=== PATIENT | male | born 1970 | race Caucasian/White ===

== ENCOUNTER 2019-12-13 12:22 | Emergency (ER) | payer BC, SELFPAY ==
[2019-12-13] VITALS (8 sets, daily range): BP systolic 115–139; BP diastolic 73–87; PULSE 58–92; RESP 11–18; O2SAT 96–100
--- NOTE | ~2019-12-13 | XR_ITS ---
XR chest 2V DATE: 12/13/2019 13:14 INDICATION: Overdose, possible aspiration TECHNIQUE: AP and lateral views COMPARISON: 09/14/2007 two-view chest FINDINGS: Normal heart size. No hilar or mediastinal enlargement. No pulmonary infiltrate or consolid ation, pleural effusion or pulmonary vascular congestion or pneumothorax. IMPRESSION: No active cardiopulmonary disease Reviewed, dictated and finalized at location A.
--- NOTE | 2019-12-13 12:35 | ED.GENADULT ---
HPI - General Adult General Chief complaint: Overdose Stated complaint: OD Source: patient and EMS Mode of arrival: EMS Limitations: no limitations History of Present Illness HPI narrative: Patient is a 49-year-old male with a history of fentanyl use who presents for evaluation of overdose. Patient reportedly overdosed, was found unresponsive by a roommate, and EMS was called. At the time of assessment, patient was apneic, did have a palpable pulse, thus the patient was given 2 mg of intramuscular Narcan, IV was established, given 2 g of intravenous Narcan and the patient awakened. Patient reported to fentanyl use. He denied alcohol use, other drug use. He was transported to our facility in stable condition, awake and alert. At the time of assessment, patient has no pain. He is alert and oriented to person, place and to time. He denies any headache pain, chest pain, shortness of breath. He denies intent to harm himself, patient is not suicidal. Related Data Allergies Allergy/AdvReac Type Severity Reaction Status Date / Time Penicillins Allergy Unknown Verified 02/19/17 16:50 Review of Systems Review of Systems: Narrative: CONSTITUTIONAL: Denies fever CARDIOVASCULAR: Denies chest pain RESPIRATORY: Denies cough or dyspnea. GASTROINTESTINAL: Denies abdominal pain SKIN: Denies rash MUSCULOSKELETAL: Denies back pain NEUROLOGIC: Denies headache Psych: Denies suicide attempt [facility] Past Medical History Medical History (Updated 12/13/19 @ 16:04 by Amisha Irvin MD) Hypertension Surgical History Surgical History (Updated 12/13/19 @ 12:37 by Amisha Irvin MD) History of hip replacement Social History Social History (Updated 12/13/19 @ 12:37 by Amisha Irvin MD) Smoking status: Former smoker Alcohol intake: never Substance use: current Substance use type: opiates Gender identity (if verbalized by the patient): Male Exam Narrative: Exam Narrative: GENERAL: Awake, alert, conversant HEAD: Normocephalic, atraumatic. EYES: PERRLA and EOMI. ENT: Nares clear, no rhinorrhea or epistaxis. Mucous membranes moist. NECK: Supple. CHEST: No respiratory distress, breathing even and non labored HEART: Regular rate, sinus rhythm ABDOMEN:Non distended, non tender EXTREMITIES: Normal range of motion. No edema. SKIN: Warm, dry, no rash. NEURO:No focal deficits. Alert and oriented x3 PSYCH: Denies HI or SI Course Vital Signs Vital signs: Vital Signs Pulse Rate 92 12/13/19 12:20 Respiratory Rate 12 12/13/19 12:20 Blood Pressure 139/87 12/13/19 12:20 Pulse Oximetry 100 12/13/19 12:20 Pulse Rate 58 L 12/13/19 15:29 Respiratory Rate 18 12/13/19 15:29 Blood Pressure 116/78 12/13/19 15:29 Pulse Oximetry 98 12/13/19 15:29 Medical Decision Making MDM Narrative Medical decision making narrative: Patient presenting for evaluation following a fentanyl overdose in which he received IV and intramuscular Narcan with good improvement in his apnea. Patient denies any reports of pain. He had no repeat episodes of apnea while in the emergency department and while on end-tidal. Patient without any pain type symptoms. Patient is not homicidal suicidal. This was unintentional. No recurrent apnea. Patient was counseled on the the effects of opiate overdose, that he today, because EMS efforts were able to revive him with Narcan. Patient is understanding. He was then discharged home after a 4-hour period of observation. Vital Signs Vital Signs: Vital Signs Pulse Rate 92 12/13/19 12:20 Respiratory Rate 12 12/13/19 12:20 Blood Pressure 139/87 12/13/19 12:20 Pulse Oximetry 100 12/13/19 12:20 Pulse Rate 58 L 12/13/19 15:29 Respiratory Rate 18 12/13/19 15:29 Blood Pressure 116/78 12/13/19 15:29 Pulse Oximetry 98 12/13/19 15:29 Imaging Data Radiologist's impression: ITS Impressions Chest X-Ray 12/13/19 13:16 IMPRESSION: No active cardiopulmo
== END 2019-12-13 16:27 | disposition home or self-care (01) ==
PROVIDERS: Emergency Provider Emergency Medicine; PCP Family Medicine
DX: T40.4X1A Poisoning by other synthetic narcotics, accidental (unintentional), initial encounter (principal); I10 Essential (primary) hypertension; Z96.649 Presence of unspecified artificial hip joint; Z87.891 Personal history of nicotine dependence
CPT/HCPCS: 71046; 99283

== ENCOUNTER 2020-04-19 08:08 | Emergency (ER) | payer BC, SELFPAY ==
[2020-04-19] VITALS (47 sets, daily range): BP systolic 117–150; BP diastolic 62–113; PULSE 67–107; RESP 12–21; TEMP 36.6; O2SAT 90–100
[2020-04-19] MEDS: SODIUM CHLORIDE 0.9% IV 1,000 ML 999 ML IV CONT ×2 (08:24→09:11)
--- NOTE | 2020-04-19 08:25 | ED.OVERDOSE ---
HPI - Overdose General Chief Complaint: Overdose Stated Complaint: OD History of Present Illness HPI Narrative: Patient is a 49-year-old male who presents the ER with an unintentional opiate overdose. Patient reports he took 1 mg of fentanyl 1 hour prior to arrival. His mom found him unresponsive in his room. It took 6 mg of Narcan for EMS to reverse overdose. Patient had a similar situation occurred 1 week ago at a local establishment. At that time he had signed a refusal. Patient reports he was only trying to get high and was not trying to end his own life. Related Data Home Medications Medication Instructions Recorded Confirmed No Home Medications 04/19/20 04/19/20 Allergies Allergy/AdvReac Type Severity Reaction Status Date / Time Penicillins Allergy Unknown Verified 02/19/17 16:50 Review of Systems Review of Systems: All systems reviewed & are unremarkable except as noted in HPI and below Constitutional: Constitutional: Denies chills, Denies fever(s) and Denies weakness ENT: Denies nasal congestion and Denies sore throat Respiratory: Respiratory: Denies cough, Denies dyspnea and Denies wheezing Gastrointestinal: Gastrointestinal: Denies abdominal pain, Denies nausea and Denies vomiting Psychiatric: Psychiatric: Denies anxiety, Denies depression, Denies homicidal ideation and Denies suicidal ideation [facility] Past Medical History Medical History (Updated 04/19/20 @ 15:06 by Kralo Durand MD) Hypertension Surgical History Surgical History (Updated 12/13/19 @ 12:37 by Amisha Irvin MD) History of hip replacement Social History Social History (Updated 12/13/19 @ 12:37 by Amisha Irvin MD) Smoking status: Former smoker Alcohol intake: never Substance use: current Substance use type: opiates Gender identity (if verbalized by the patient): Male Exam Narrative: Exam Narrative: GENERAL: Well-appearing, well-nourished, and in no acute distress. HEAD: Normocephalic, atraumatic. EYES: PERRL and EOMI. ENT: Mucous membranes moist. CHEST: Clear to auscultation. No respiratory distress. HEART: Regular rate and rhythm. Normal peripheral pulses. ABDOMEN: Soft, nontender, nondistended. EXTREMITIES: Normal range of motion. No edema. NEURO: Alert and oriented x3. PSYCH: Normal mood and affect. Course Course Emergency Course: Patient required 1 dose of Narcan while in the ER. He has done well since that dose and has had no additional hypoxia or respiratory suppression. He is awake and alert and oriented x3. He is ready to go and has contacted a ride. Vital Signs Vital signs: Vital Signs Temperature 97.8 F 04/19/20 08:12 Pulse Rate 103 H 04/19/20 08:12 Respiratory Rate 12 04/19/20 08:12 Blood Pressure 150/85 H 04/19/20 08:12 Pulse Oximetry 98 04/19/20 08:12 Temperature 97.8 F 04/19/20 08:12 Pulse Rate 67 04/19/20 14:31 Respiratory Rate 12 04/19/20 14:31 Blood Pressure 119/82 04/19/20 14:31 Pulse Oximetry 93 04/19/20 14:31 MDM - Overdose Lab Data Result diagrams: 04/19/20 08:24 04/19/20 08:24 Labs: Lab Results 04/19/20 04/19/20 Range/Units 08:24 08:24 WBC 10.1 H (4.5-10.0) K/mm3 RBC 4.29 L (4.6-6.20) M/mm3 Hgb 13.1 L (14.0-18.0) g/dL Hct 40.5 L (42.0-52.0) % MCV 94.4 (80-100) fl MCH 30.5 (26-34) pg MCHC 32.3 (32-36) g/dl RDW 13.5 (11.5-14.5) % Plt Count 286 (150-375) k/mm3 MPV 8.3 (7.4-10.4) fl Immature Gran % (Auto) 0.5 (0-0.5) % Neut % (Auto) 87.3 H (45.5-73.1) % Lymph % (Auto) 9.0 L (18.3-44.2) % [place] % (Auto) 1.7 L (2.6-8.5) % Eos % (Auto) 1.2 (0-4.4) % Baso % (Auto) 0.3 (0.2-1.2) % Lymph # (Auto) 0.91 (0.9-3.2) K/mm3 [place] # (Auto) 0.2 (0.1-0.6) K/mm3 Eos # (Auto) 0.1 (0-0.3) K/mm3 Baso # (Auto) 0.0 (0.0-0.1) K/mm3 Abs Immat Gran (auto) 0.05 H (0.00-0.031) K/mm3 Absolute Neuts (auto) 8.8 H (1.3-6.7)
--- NOTE | 2020-04-19 08:27 | ECG_ITS ---
Measurements Intervals [place] Rate: 101 P: 55 TN: 173 QRS: 49 QRSD: 91 T: 42 QT: 336 QTc: 436 Interpretive Statements SINUS TACHYCARDIA BASELINE ARTIFACT- I, III, AVL, V2-V3 BORDERLINE ECG Electronically Signed On 04-19-2020 9:09:30 CDT by Teodoro Baron D.O.
[2020-04-19 08:34] LABS: Basophils Percent Auto 0.3 % (0.2-1.2); Eosinophils Absolute Auto 0.1 K/mm3 (0-0.3); Eosinophils Percent Auto 1.2 % (0-4.4); Hematocrit 40.5 % (42.0-52.0); Hemoglobin 13.1 g/dL (14.0-18.0); Immature Granulocyte Absolute 0.05 K/mm3 (0.00-0.031); Immature Granulocyte Percent A 0.5 % (0-0.5); Lymphocytes Absolute Auto 0.91 K/mm3 (0.9-3.2); Mean Corpuscular HGB Conc 32.3 g/dl (32-36); Mean Corpuscular Hemoglobin 30.5 pg (26-34); Mean Corpuscular Volume 94.4 fl (80-100); Mean Platelet Volume 8.3 fl (7.4-10.4); Monocytes Absolute Auto 0.2 K/mm3 (0.1-0.6); Monocytes Percent Auto 1.7 % (2.6-8.5); Neutrophils Absolute Auto 8.8 K/mm3 (1.3-6.7); Neutrophils Percent Auto 87.3 % (45.5-73.1); Platelet Count Result 286 k/mm3 (150-375); Red Blood Count 4.29 M/mm3 (4.6-6.20); Red Cell Distribution Width 13.5 % (11.5-14.5); White Blood Count 10.1 K/mm3 (4.5-10.0)
[2020-04-19 08:46] LABS: Alanine Aminotransferase 186 U/L (4-50); Albumin Level 4.6 g/dL (3.5-5.1); Alkaline Phosphatase 99 U/L (38-126); Anion Gap 17 mmol/L (8-16); Aspartate Amino Transferase 250 U/L (17-59); Bilirubin,Total 0.3 mg/dL (0.2-1.3); Blood Urea Nitrogen 27 mg/dL (9-20); Calcium 9.4 mg/dL (8.4-10.2); Carbon Dioxide 21 mmol/L (22-30); Chloride 101 mmol/L (98-107); Estimated CRCL calculation 55 ml/min; Estimated Glomerular Filt Rate 43; Glucose 166 mg/dL (75-110); Potassium 4.6 mmol/L (3.4-5.0); Sodium 139 mmol/L (137-145)
[2020-04-19] MEDS: ONDANSETRON INJ 4 MG/2 ML VIAL IV PUSH (10:49)
[2020-04-19] MEDS: NALOXONE HCL INJ 2 MG/2 ML AMP 1 MG IV PUSH (10:56)
--- NOTE | 2020-04-19 10:56 | PC.NURSE ---
Pt. becoming increasingly more lethargic, pupils becoming pin point. EDP notified. Per EDP via verbal order readback give Pt. 1mg of narcan IVP. Pt. became more alert. Pt. AOx4
== END 2020-04-19 15:16 | disposition home or self-care (01) ==
PROVIDERS: Emergency Provider Emergency Medicine; PCP Family Medicine
DX: T40.4X1A Poisoning by other synthetic narcotics, accidental (unintentional), initial encounter (principal); Z96.649 Presence of unspecified artificial hip joint; Z87.891 Personal history of nicotine dependence; R00.0 Tachycardia, unspecified
CPT/HCPCS: 36415; 80053; 85025; 93005; 96361; 96374; 96375; 99284; J2310; J2405; J7030

== ENCOUNTER 2021-02-03 07:44 | Emergency (ER) | payer BC, SELFPAY ==
[2021-02-03] VITALS (14 sets, daily range): BP systolic 118–167; BP diastolic 58–96; PULSE 48–100; RESP 11–24; TEMP 36.5; O2SAT 94–100
--- NOTE | 2021-02-03 08:18 | ED.GENADULT ---
HPI - General Adult General Chief complaint: Overdose Stated complaint: od Time Seen by Provider: 02/03/21 08:03 Source: patient History of Present Illness HPI narrative: Patient is a 50 y/o male brought in by EMS for overdose. He was apparently found unresponsive earlier today by his mother, who called EMS. He was given Narcan and he became responsive. Currently, he states that he feels well with no complaint. He admits that he has been using Fentanyl. He denies any SI. Related Data Home Medications Medication Instructions Recorded Confirmed lisinopril 02/03/21 Allergies Allergy/AdvReac Type Severity Reaction Status Date / Time Penicillins Allergy Unknown Verified 02/19/17 16:50 Review of Systems Review of Systems: All systems reviewed & are unremarkable except as noted in HPI and below Constitutional: Constitutional: Denies chills, Denies fever(s), Denies headache(s) and Denies weakness Eyes: Eyes: Denies blurry vision ENT: Denies headache(s) and Denies neck pain Cardiovascular: Cardiovascular: Denies chest pain and Denies dyspnea Respiratory: Respiratory: Denies cough and Denies dyspnea Gastrointestinal: Gastrointestinal: Denies abdominal pain, Denies diarrhea, Denies nausea and Denies vomiting Genitourinary: Genitourinary: Denies hematuria and Denies dysuria Musculoskeletal: Musculoskeletal: Denies back pain and Denies neck pain Neurologic: Denies headache(s) and Denies weakness PMFSH Past Medical History Medical History Hypertension Surgical History Surgical History History of hip replacement Social History Social History Smoking status: Former smoker Alcohol intake: never Substance use: current Substance use type: opiates and inhalants Gender identity (if verbalized by the patient): Male Exam Const: General: no acute distress and well developed Orientation/consciousness: oriented to person, oriented to place, oriented to time and patient oriented x3 HENMT: Head: normocephalic Ears: external ears normal General nose exam: Normal external nose present Eyes: General: appearance normal, both eyes and all related structures Conjunctivae: conjunctivae normal Neck: Neck: normal visual inspection and full ROM Chest: Chest palpation & inspection: normal inspection of the chest and no tenderness Resp: Effort & Inspection: normal respiratory effort Auscultation: clear to auscultation bilaterally Cardio: Rate: regular rate Rhythm: regular rhythm GI: GI Palp: No abdominal tenderness and Yes Soft to palpation Skin: General skin exam: normal color and turgor normal Neuro: General: oriented to person, oriented to place, oriented to time and patient oriented x3 Cognition (Neuro): normal cognition Extrem: General: normal to inspection, full ROM and no pedal edema Psych: Appearance: grossly normal Mental Status: mental status grossly normal Affect: normal affect Course Vital Signs Vital signs: Vital Signs Temperature 36.5 C 02/03/21 07:45 Pulse Rate 100 02/03/21 07:45 Respiratory Rate 20 02/03/21 07:45 Blood Pressure 167/96 H 02/03/21 07:45 Pulse Oximetry 100 02/03/21 07:45 Temperature 36.5 C 02/03/21 07:45 Pulse Rate 51 L 02/03/21 14:20 Respiratory Rate 18 02/03/21 14:20 Blood Pressure 129/81 02/03/21 14:20 Pulse Oximetry 99 02/03/21 14:20 Medical Decision Making MDM Narrative Medical decision making narrative: Leukocytosis is noted. There is no obvious source of infection. This is likely due to stress. Vital Signs Vital Signs: Vital Signs Temperature 36.5 C 02/03/21 07:45 Pulse Rate 100 02/03/21 07:45 Respiratory Rate 20 02/03/21 07:45 Blood Pressure 167/96 H 02/03/21 07:45 Pulse Oximetry 100 02/03/21 07:45 Temperature 36.5 C 02/03/21 07:45 Pu
[2021-02-03 08:42] LABS: Basophils Absolute Auto 0.1 K/mm3 (0.0-0.1); Basophils Percent Auto 0.2 % (0.2-1.2); Eosinophils Absolute Auto 0.1 K/mm3 (0-0.3); Eosinophils Percent Auto 0.2 % (0-4.4); Hemoglobin 12.2 g/dL (14.0-18.0); Immature Granulocyte Percent A 0.5 % (0-0.5); Lymphocytes Absolute Auto 0.41 K/mm3 (0.9-3.2); Mean Corpuscular Hemoglobin 30.3 pg (26-34); Mean Platelet Volume 8.2 fl (7.4-10.4); Monocytes Absolute Auto 0.7 K/mm3 (0.1-0.6); Monocytes Percent Auto 3.3 % (2.6-8.5); Neutrophils Absolute Auto 19.2 K/mm3 (1.3-6.7); Neutrophils Percent Auto 93.8 % (45.5-73.1); Platelet Count Result 306 k/mm3 (150-375); Red Blood Count 4.02 M/mm3 (4.6-6.20); Red Cell Distribution Width 13.2 % (11.5-14.5); White Blood Count 20.5 K/mm3 (4.5-10.0)
[2021-02-03 08:52] LABS: Chloride 103 mmol/L (98-107)
[2021-02-03 08:59] LABS: Albumin Level 4.1 g/dL (3.5-5.1)
[2021-02-03 09:00] LABS: Alanine Aminotransferase 15 U/L (4-50); Alkaline Phosphatase 93 U/L (38-126); Anion Gap 8 mmol/L (8-16); Aspartate Amino Transferase 33 U/L (17-59); Bilirubin,Total 0.3 mg/dL (0.2-1.3); Blood Urea Nitrogen 21 mg/dL (9-20); Calcium 9.1 mg/dL (8.4-10.2); Carbon Dioxide 28 mmol/L (22-30); Estimated CRCL calculation 85 ml/min; Estimated Glomerular Filt Rate > 60; Glucose 79 mg/dL (75-110); Potassium 3.5 mmol/L (3.4-5.0); Sodium 139 mmol/L (137-145)
--- NOTE | 2021-02-03 09:25 | PC.NURSE ---
pt requested soda, asked RN if pt can have fluids po. Gave pt two sodas, requested urine. Pt to try in urinal before cath
[2021-02-03 14:01] LABS: Add Urine Microscopic? YES; Appearance Urine Clear (Clear); Bilirubin Urine Negative (Negative); Blood Urine Negative (Negative); Color Urine Yellow (Yellow); Glucose Urine UA 3+ mg/dL (Negative); Ketones Urine Negative (Negative); Leukocyte Esterase Ur Negative LEU/UL (Negative); Mucus Urine Rare /lpf; Nitrate Urine Negative (Negative); Protein Urine Negative (Negative); RBC Urine 0-2 /hpf (0-2); Specific Grav Ur 1.021 (1.001-1.035); Urobilinogen Urine Negative mg/dL (<2.0); WBC Urine 0-3 /hpf
[2021-02-03 14:12] LABS: Amphetamine Screen Urine Negative (Negative); Barbiturate Screen Urine Negative (Negative); Benzodiazepines Screen Urine Negative (Negative); Cannabinoid Screen Urine Positive (Negative); Cocaine Screen Urine Negative (Negative); Methadone Screen Urine Negative (Negative); Opiate Screen Urine Negative (Negative); Phencyclidine Screen Urine Negative (Negative)
== END 2021-02-03 14:23 | disposition home or self-care (01) ==
PROVIDERS: Emergency Provider Emergency Medicine; PCP Family Medicine
DX: T40.411A Poisoning by fentanyl or fentanyl analogs, accidental (unintentional), initial encounter (principal); Z96.649 Presence of unspecified artificial hip joint; Z87.891 Personal history of nicotine dependence
CPT/HCPCS: 36415; 80053; 80307; 81001; 85025; 99283

== ENCOUNTER 2023-01-03 10:51 | Emergency (ER) | payer MEDICARE, MEDICAID, SELFPAY ==
[2023-01-03] VITALS (11 sets, daily range): BP systolic 91–135; BP diastolic 57–91; PULSE 68–97; RESP 10–30; TEMP 36.4; O2SAT 96–100
--- NOTE | 2023-01-03 11:24 | PC.NURSE ---
patient refused CXR, provider aware
--- NOTE | 2023-01-03 12:14 | ED.OVERDOSE ---
HPI - Overdose General Chief Complaint: Overdose Stated Complaint: fentanyl OD History of Present Illness HPI Narrative: Patient is a 52-year-old male who presents ER after overdosing on fentanyl. He took a tablet. He is found unresponsive. EMS gave him 2 mg of Narcan intranasally, he then received 4 more milligrams by IV knee. He is awake alert and oriented x3. Has no complaints at this time. He denies being suicidal. Reports he has had increased stress at home due to taking care of his parents. He had been clean from opiate use for prolonged period until relapsing in the last day. There is no evidence of vomiting. Related Data Home Medications Medication Instructions Recorded Confirmed lisinopril 20 mg tablet 02/03/21 Allergies Allergy/AdvReac Type Severity Reaction Status Date / Time Penicillins Allergy Unknown Verified 02/26/21 15:47 Review of Systems Review of Systems: All systems reviewed & are unremarkable except as noted in HPI and below Constitutional: Constitutional: Denies chills and Denies fever(s) Cardiovascular: Cardiovascular: Denies chest pain and Denies rapid heart rate Respiratory: Respiratory: Denies cough and Denies dyspnea Gastrointestinal: Gastrointestinal: Denies abdominal pain, Denies nausea and Denies vomiting Psychiatric: Psychiatric: Denies depression and Denies suicidal ideation [facility] Past Medical History Medical History Hypertension Surgical History Surgical History History of hip replacement Social History Social History (System 02/26/21 @ 15:47 by Gareth Nguyễn) Smoking status: Former smoker Alcohol intake: never Substance use: current Substance use type: opiates and inhalants Gender identity (if verbalized by the patient): Male Exam Narrative: GENERAL: Well-appearing, well-nourished, and in no acute distress. HEAD: Normocephalic, atraumatic. EYES: PERRL and EOMI. ENT: Mucous membranes moist. CHEST: Clear to auscultation. No respiratory distress. HEART: Regular rate and rhythm. Normal peripheral pulses. ABDOMEN: Soft, nontender, nondistended. EXTREMITIES: Normal range of motion. No edema. SKIN: Warm, dry, no rash. NEURO: Alert and oriented x3. PSYCH: Normal mood and affect. Course Course Emergency Course: Patient resting comfortably. No respiratory depression or hypoxia. Patient is required no additional Narcan. [place] appropriate for discharge home. Patient refused his chest x-ray. Vital Signs Vital signs: Vital Signs Temperature 97.5 F L 01/03/23 10:48 Pulse Rate 85 01/03/23 10:48 Respiratory Rate 16 01/03/23 10:48 Blood Pressure 135/88 01/03/23 10:48 Pulse Oximetry 100 01/03/23 10:48 Oxygen Delivery Room Air 01/03/23 10:48 Temperature 97.5 F L 01/03/23 10:48 Pulse Rate 68 01/03/23 13:02 Respiratory Rate 14 01/03/23 13:02 Blood Pressure 107/65 01/03/23 13:02 Pulse Oximetry 100 01/03/23 13:02 Oxygen Delivery Room Air 01/03/23 10:48 Discharge Plan Discharge Clinical Impression: Opiate overdose Patient Disposition: Home, Self-Care Condition: Stable Instructions: Opioid Safety (ED) Additional Instructions: Return the ER if you have fever over 100.4 ?F, you cannot keep down food or water, you lose consciousness, or you have additional concerns. Prescriptions: No Action lisinopril 20 mg tablet Follow-up/Referrals: Josue,Nayeli Deleon MD [Primary Care Provider] - 1 Week
== END 2023-01-03 13:59 | disposition home or self-care (01) ==
PROVIDERS: Emergency Provider Emergency Medicine; PCP Family Medicine
DX: T40.411A Poisoning by fentanyl or fentanyl analogs, accidental (unintentional), initial encounter (principal); I10 Essential (primary) hypertension; Z87.891 Personal history of nicotine dependence
CPT/HCPCS: 99281

== ENCOUNTER 2024-11-04 14:46 | Emergency (ER) | payer OTHER, SELFPAY ==
--- NOTE | ~2024-11-04 | US_ITS ---
EXAMINATION: US venous doppler [facility] DATE: 11/04/2024 17:53 INDICATION: Bilateral lower limb pain and swelling TECHNIQUE: Grayscale ultrasound images without and with compression and Doppler ultrasound images of the bilateral lower extremity veins were obtained. COMPARISON: None. FINDINGS: The visualized portions of right common femoral vein, profunda (deep) femoral vein, femoral vein, pop liteal vein, posterior tibial veins, peroneal veins, gastrocnemius vein and greater saphenous vein ou tflow are patent. The visualized portions of left common femoral vein, profunda femoral vein, femoral vein, popliteal v ein, posterior tibial veins, peroneal veins, gastrocnemius vein and greater saphenous vein outflow ar e patent. IMPRESSION: 1. No deep venous thrombosis in either lower limb. Reviewed, dictated and finalized at location A.
--- OUTSIDE RECORDS SUMMARY | 2024-11-04 14:48 | XMS_ITS | Clinical Summary ---
Author Organization [facility] Address [address] [place] [address] Care Team Providers Care Manager Fashion Name Role Phone Unavailable Primary Care Provider Unavailabl e Social History Tobacco Use Types Packs/Day Years Used Date Smoking Tobacco: Never Assessed Sex and Gender Information Value Date Recorded Sex Assigned at Not on file Legal Sex Male 7:54 PM CDT Gender Identity Not on file Sexual Orientation Not on file Last Filed Vital Signs Vital Sign Reading Time Taken Comments Blood Pressure 118/72 05/01/2015 9:53 AM CDT Pulse - - Temperature - - Respiratory Rate - - Oxygen Saturation - - Inhaled Oxygen Concentration - - Weight 90.7 kg (200 lb) 05/01/2015 9:29 AM CDT Height 188 cm (6' 2 ) 05/01/2015 9:29 AM CDT Body Mass Index 25.68 05/01/2015 9:29 AM CDT Plan of Treatment Health Maintenance Due Date Last Done Comments Colorectal Cancer Screening Colonoscopy (10 Years) 1969 Annual Physical 1972 Hepatitis C 1987 DTaP, Tdap and Td Vaccines ( 1 - Tdap) 1988 Hepatitis B Vaccines (1 of 3 - 19+ 3-dose series) 1988 Zoster Vaccines (1 of 2) 2019 COVID-19 Vaccine (2023-2 5 season) 2024 Meningococcal B Vaccine Aged Out No l onger eligible based on patient's age to complete this topic Meningococcal Vaccine Aged Out No wally tong eligible based on patient's age to complete this topic Pneumococcal Vaccine: Pediat rics (0 to 5 Years) and At-Risk Patients (6 to 64 Years) Aged Out No longer eligible b ased on patient's age to complete this topic RSV Immunizations Under 20 Months Aged Out No longer eligible based on patient's age to complete this topic
--- OUTSIDE RECORDS SUMMARY | 2024-11-04 14:48 | XMS_ITS | Clinical Summary ---
Author Organization [facility] [employer] Address [address] [place] [address] Care Team Providers Care Geospatial Applications Developer Name Role Phone Unavailable Primary Care Provider Unavailabl e Source Comments [facility],non-owned Affiliates and Associated Physician Practices is amultiple site organization consisting of ambulatory clinics and hospital sitesin [place], [place], [place] and [place]. This disclosure is being madepursuant to the Care Everywhere program and may not contain all information available regarding this patient. Last updated 18.[facility] [employer] Social History Tobacco Use Types Packs/Day Years Used Date Smoking Tobacco: Never Assessed Sex and Gender Information Value Date Recorded Sex Assigned at Not on file Gender Identity Not on file Sexual Orientation Not on file Last Filed Vital Signs Vital Sign Reading Time Taken Comments Blood Pressure 130/67 11/17/2019 6:00 PM CDT Pulse 72 11/17/2019 6:00 PM CDT Temperature 36.6 C (97.8 F) 11/17/2019 4:24 PM CDT Respiratory Rate 17 11/17/2019 6:00 PM CDT Oxygen Saturation 97% 11/17/2019 6:00 PM CDT Inhaled Oxygen Concentration - - Weight 88.5 kg (195 lb) 11/17/2019 4:24 PM CDT Height 188 cm (6' 2 ) 11/17/2019 4:24 PM CDT Body Mass Index 25.04 11/17/2019 4:24 PM CDT Plan of Treatment Health Maintenance Due Date Last Done Comments COLOGUARD (AGES 45-75) - COL ON CA SCREENING 1969 COLON MONITORING 1969 COLONOSCOPY - COLON CA SCREENING 1969 CT COLONOGRAPHY - COLON CA SCREENING 1969 Colorectal Cancer Screening 1969 FIT - COLON CA SCREENING 1969 FLEX SIG - COLON CA SCREENING 1969 LIPID TESTING 1969 HIV SCREENING 1984 HEPATITIS C SCREENING 05/15/1987 DTAP/TDAP/TD VACCINES (1 - Tdap) 1988 HEPATITIS B VACCINE (1 of 3 - 19+ 3-dose series) 1988 PNEUMOCOCCAL VACCINE 50+ (1 of 1 - PCV) 2019 ZOSTER VACCINE (1 of 2) 2019 COVID-19 VACCINE (1 - 2023-2 5 season) 2024 DEPRESSION SCREENING 07/27/2024 INFLUENZA VACCINE (Season Ended) 2025 HIB VACCINE Aged Out No longer eligi ble based on patient's age to complete this topic HPV VACCINE Aged Out No longer eligi ble based on patient's age to complete this topic MENINGOCOCCAL (Group B) VACC INE SHARED DECISION-MAKING Aged Out No longer eligibl e based on patient's age to complete this topic MENINGOCOCCAL GROUPS A/C/Y/W VACCINE Aged Out No longer eligible b ased on patient's age to complete this topic PNEUMOCOCCAL VACCINE Aged Out No long er eligible based on patient's age to complete this topic
[2024-11-04 14:54] VITALS: BP 140/77; PULSE 63; RESP 16; TEMP 36.8; O2SAT 97
--- NOTE | 2024-11-04 16:06 | ED_ITS ---
HPI - Extremity Injury (Lower) General Chief Complaint: Extremity Injury, Lower Stated Complaint: Injury to right knee-bilat castillo/ankle swelling Time Seen by Provider: 11/04/24 16:02 Source: patient and RN notes reviewed Mode of arrival: ambulatory Limitations: no limitations History of Present Illness HPI Narrative: Patient presents with right knee pain as well as bilateral shins/ankle swelling. He states he was doing yd work and throwing bags of your waist around with his feet planted and perform a twisting motion he experienced pain in his right knee. This happened 3 days ago. He has been applying ice and using ibuprofen for pain. He is not on anticoagulation. No history of DVT or PE. He states the knee brace helps him to walk. He has a history of right hip replacement that was performed at [facility] however this orthopedic surgeon retired and he is in need of a referral to another 1 as he was told that he would require another hip replacement in this joint. He notes that he has had right knee swelling but with the knee brace on he has continued to perform work outside. This is involved to being his feet all a continuing to do yd work and mow the grass he states during this time he feels like he has noticed more swelling in his bilateral distal shins and ankles where he is not able to wear a brace for compression stockings while working. He denies any shortness of breath. He states the pain in the knees throughout the entire anterior surface, superiorly, inferiorly, medially, and laterally. Related Data Home Medications ?Medication ?Instructions ?Recorded ?Confirmed ?Last Taken ?Type lisinopril 20 mg tablet 02/03/21 Unknown History Allergies Allergy/AdvReac Type Severity Reaction Status Date / Time Penicillins Allergy Intermediate Swelling Verified 11/04/24 14:47 of Lip/Tongue/Throat PMFSH Past Medical History Medical History Hypertension Surgical History Surgical History History of hip replacement Right, [facility] Social History Social History Smoking status: Former smoker Alcohol intake: never Substance use: current Substance use type: opiates and inhalants Gender identity (if verbalized by the patient): Male Exam 2 Narrative: GENERAL: Well-appearing, well-nourished, and in no acute distress. HEAD: Normocephalic, atraumatic. EYES: Non injected, non icteric ENT: Nares clear, no rhinorrhea or epistaxis. NECK: Supple. CHEST: Speaking in full sentences. No respiratory distress. HEART: Regular rate and rhythm. Strong palpably symmetric DP pulses bilaterally. ABDOMEN: Soft, nondistended. EXTREMITIES: Right knee effusion without overlying erythema/particular warmth/induration. No bilateral lower extremity pitting edema at distal tibia, ankles, or pedal edema. Slight anterior laxity in right knee joint. SKIN: Warm, dry, no rash. NEURO: No focal deficits. Alert and oriented x3. PSYCH: Normal mood and affect. Course Vital Signs Vital signs: Vital Signs Temperature 98.2 F 11/04/24 14:54 Pulse Rate 63 11/04/24 14:54 Respiratory Rate 16 11/04/24 14:54 Blood Pressure 140/77 11/04/24 14:54 Pulse Oximetry 97 11/04/24 14:54 Temperature 98.2 F 11/04/24 14:54 Pulse Rate 87 11/04/24 17:51 Respiratory Rate 18 11/04/24 17:51 Blood Pressure 123/77 11/04/24 17:51 Pulse Oximetry 100 11/04/24 17:51 MDM - Extremity Injury (Lower) MDM Narrative Medical decision making narrative: Patient presents with right knee pain for the past 3 days duration after he was turning with his foot planted and he twisted while throwing bags of yard waste. He does have a right knee effusion on exam. Mild anterior laxity on physical exam although patient states this is chronic after his previous injury for which right hip replacement was required. In the emergency department they are afebrile with vital signs within normal limits. Normocytic anemia. Stable from previous. Dimer mildly elevated, will proceed with US study. BNP only mildly elevated, not to a degree to suggest acute heart failure based on the reference range of the assay for patient's age. I had ordered an x-ray of the right knee however he refused twice per discussion with ob tech. I suspect that patient has internal derangement of the knee, likely ligamentous though possibly meniscal. He already has a knee brace and is doing appropriate supportive care in regards to rest, ice, compression, elevation. The subjective lower extremity edema appears consistent with dependent edema related to the fact that he has been on his feet over the last several days continuing to perform yard work. Patient prescribed [id number] analgesic medication. Advised follow-up with primary care physician. Provided a referral/contact information for Orthopedic surgery. Discharged home in stable condition. Differential Diagnosis Differential diagnosis: Likely acute internal derangement of knee (Including meniscal and ligamentous injury) and other (DVT, acute heart failure, symptomatic anemia, electrolyte abnormalities, dependent edema) Lab Data Attestation: I reviewed the patient's lab results. 11/04/24 16:43 11/04/24 16:43 Labs: Lab Results 11/04/24 11/04/24 11/04/24 Range/Units 16:43 16:43 16:44 WBC 5.4 (4.5-10.0) K/mm3 RBC 3.79 L (4.6-6.20) M/mm3 Hgb 11.1 L (14.0-18.0) g/dL Hct 35.0 L (42.0-52.0) % MCV 92.3 (80-100) fl MCH 29.3 (26-34) pg MCHC 31.7 L (32-36) g/dl RDW 14.0 (11.5-14.5) % Plt Count 250 (150-375) k/mm3 MPV 8.0 (7.4-10.4) fl Immature Gran % (Auto) 0.2 (0-0.5) % Neut % (Auto) 57.6 (45.5-73.1) % Lymph % (Auto) 25.7 (18.3-44.2) % Slope % (Auto) 9.6 H (2.6-8.5) % Eos % (Auto) 6.3 H (0-4.4) % Baso % (Auto) 0.6 (0.2-1.2) % Lymph # (Auto) 1.40 (0.9-3.2) K/mm3 Slope # (Auto) 0.5 (0.1-0.6) K/mm3 Eos # (Auto) 0.3 (0-0.3) K/mm3 Baso # (Auto) 0.0 (0.0-0.1) K/mm3 Abs Immat Gran (auto) 0.01 (0.00-0.031) K/mm3 Absolute Neuts (auto) 3.1 (1.3-6.7) K/mm3 Absolute Nucleated RBC 0.000 (0.0-0.012) K/mm3 Nucleated RBC % 0.0 (0.0-0.2) % PT 12.7 (11.1-14.7) Seconds INR 0.9 APTT 31.6 (22.3-36.8) Seconds D-Dimer 0.87 H (<0.48) ug/mL Sodium 139 (137-145) mmol/L Potassium 3.9 (3.4-5.0) mmol/L Chloride 100 (98-107) mmol/L Carbon Dioxide 36 H (22-30) mmol/L Anion Gap 3 L (4-12) mmol/L BUN 21 H (9-20) mg/dL Creatinine 0.96 (0.7-1.3) mg/dL Estim Creat Clear Calc 89 ml/min Estimated GFR > 60 (59 - ) Glucose 88 (65-110) mg/dL Calcium 8.8 (8.4-10.2) mg/dL Magnesium 2.2 (1.6-2.3) mg/dL Total Creatine Kinase 94 (55-170) U/L NT-Pro-B Natriuret Pep 128 H Cancelled (19.9-100) pg/mL Imaging Data Radiologist's impression: Impressions Venous Doppler Study 11/04/24 17:56 IMPRESSION: 1. No deep venous thrombosis in either lower limb. Discharge Plan Discharge Clinical Impression: Normocytic anemia, Knee pain, right, Effusion of right knee, Bilateral lower extremity edema Patient Disposition: Home Condition: Stable Instructions: Antibiotic Form, Leg Edema (ED), Swollen Knee Joint (ED), Knee Pain (ED), Anemia (ED), P.R.I.C.E. Treatment (ED) Additional Instructions: Acetaminophen/Tylenol (maximum 4000 mg per day) is safe to take with NSAIDs (ibuprofen/Motrin) for pain relief. In the interim you can continue the measures you have been doing, R-I-C-E (rest, ice, compression, elevation). The name of the orthopedic surgeon is listed below since you were designed a referral to a 1 for your previous hip issue. Return to the emergency department with any new, worsening, unmanaged symptoms. Patient Language: Zambian Prescriptions: New ibuprofen 600 mg tablet 600 mg PO TID PRN (Reason: pain) Qty: 30 0RF acetaminophen 500 mg capsule 1,000 mg PO Q6H PRN (Reason: pain) Qty: 30 0RF No Action lisinopril 20 mg tablet Follow-up/Referrals: Juma Foster MD [Physician] - [facility],Nayeli Deleon MD [Primary Care Provider] - Stand Alone Forms: Work/School Release IP Time of Disposition: 18:39
--- OUTSIDE RECORDS SUMMARY | 2024-11-04 16:10 | XMS_ITS | Clinical Summary ---
Author Organization [facility] Address [address] [place] [address] Care Team Providers Care Body Die Maker Name Role Phone Unavailable Primary Care Provider Unavailabl e Source Comments [facility],non-owned Affiliates and Associated Physician Practices is amultiple site organization consisting of ambulatory clinics and hospital sitesin [place], [place], [place] and [place]. This disclosure is being madepursuant to the Care Everywhere program and may not contain all information available regarding this patient. Last updated 18.[facility] Social History Tobacco Use Types Packs/Day Years [...]
--- OUTSIDE RECORDS SUMMARY | 2024-11-04 16:10 | XMS_ITS | Clinical Summary ---
Author Organization [facility] Address [address] [place] [address] Care Team Providers Care Supervising Editor News Reel Name Role Phone Unavailable Primary Care Provider [...]
[2024-11-04] MEDS: HYDROcodone/acetaminophen (*CRX) 5-325 MG TABLET 1 TAB PO (16:41)
[2024-11-04 17:00] LABS: Basophils Percent Auto 0.6 % (0.2-1.2); Eosinophils Absolute Auto 0.3 K/mm3 (0-0.3); Eosinophils Percent Auto 6.3 % (0-4.4); Hemoglobin 11.1 g/dL (14.0-18.0); Immature Granulocyte Absolute 0.01 K/mm3 (0.00-0.031); Immature Granulocyte Percent A 0.2 % (0-0.5); Lymphocytes Percent Auto 25.7 % (18.3-44.2); Mean Corpuscular HGB Conc 31.7 g/dl (32-36); Mean Corpuscular Hemoglobin 29.3 pg (26-34); Mean Corpuscular Volume 92.3 fl (80-100); Monocytes Absolute Auto 0.5 K/mm3 (0.1-0.6); Monocytes Percent Auto 9.6 % (2.6-8.5); Neutrophils Absolute Auto 3.1 K/mm3 (1.3-6.7); Neutrophils Percent Auto 57.6 % (45.5-73.1); Platelet Count Result 250 k/mm3 (150-375); Red Blood Count 3.79 M/mm3 (4.6-6.20); White Blood Count 5.4 K/mm3 (4.5-10.0)
[2024-11-04 17:12] LABS: INR 0.9; Prothrombin Time 12.7 Seconds (11.1-14.7)
[2024-11-04 17:13] LABS: Partial Thromboplastin Time 31.6 Seconds (22.3-36.8)
[2024-11-04 17:19] LABS: Anion Gap 3 mmol/L (4-12); Blood Urea Nitrogen 21 mg/dL (9-20); Calcium 8.8 mg/dL (8.4-10.2); Carbon Dioxide 36 mmol/L (22-30); Chloride 100 mmol/L (98-107); Creatine Kinase 94 U/L (55-170); Estimated CRCL calculation 89 ml/min; Estimated Glomerular Filt Rate > 60; Glucose 88 mg/dL (65-110); Magnesium 2.2 mg/dL (1.6-2.3); Potassium 3.9 mmol/L (3.4-5.0); Sodium 139 mmol/L (137-145)
[2024-11-04 17:23] LABS: D Dimer 0.87 ug/mL (<0.48)
[2024-11-04 17:36] LABS: NT Pro B Type Natriuretic Pept 128 pg/mL (19.9-100)
[2024-11-04 17:51] VITALS: BP 123/77; PULSE 87; RESP 18; O2SAT 100
== END 2024-11-04 18:51 | disposition home or self-care (01) ==
PROVIDERS: Emergency Provider Student in an Organized Health Care Education/Training Program; PCP Family Medicine
DX: M25.561 Pain in right knee (principal); M25.461 Effusion, right knee; R60.0 Localized edema; D64.9 Anemia, unspecified; I10 Essential (primary) hypertension; Z96.641 Presence of right artificial hip joint; Z87.891 Personal history of nicotine dependence; Z79.899 Other long term (current) drug therapy
CPT/HCPCS: 36415; 80048; 82550; 83735; 83880; 85025; 85380; 85610; 85730; 93970; 99284; A9270